=== PATIENT | female | born 1950 | race Caucasian/White ===

== ENCOUNTER 2023-08-06 23:48 | Observation (INO) | payer MEDICARE, BC ==
[~2023-08-06] VITALS: Ht 175.3 cm; Wt 91.0 kg
[2023-08-07] VITALS (7 sets, daily range): BP systolic 113–155; BP diastolic 30–65; PULSE 76–87; RESP 16–18; TEMP 98.1; O2SAT 90–97
[2023-08-07 00:25] LABS: BILIRUBIN,URINE NEGATIVE (Neg); CLARITY,URINE CLEAR (Clear); COLOR,URINE STRAW (Yellow); GLUCOSE, URINE NEGATIVE (Neg); KETONES,URINE NEGATIVE (Neg); LEUKOCYTE ESTERASE ,URINE TRACE (Neg); NITRITES, URINE NEGATIVE (Neg); OCCULT BLOOD,URINE NEGATIVE (Neg); PROTEIN,URINE NEGATIVE (Neg); UROBILINOGEN,URINE 0.2 E.U/dL (0.2-1.0)
[2023-08-07] MEDS ORDERED: pantoprazole 40mg IV 80 MG in normal saline 100ml IV soln 100 ML IV ONE (01:00)
[2023-08-07] MEDS ORDERED: ondansetron/PF 4mg/2ml inj IV ONE (01:00)
[2023-08-07] MEDS ORDERED: normal saline 1000ml 1,000 ML IV ONE (01:00)
[2023-08-07 01:02] LABS: ALANINE AMINOTRANSFERASE 27 U/L (12-78); ALBUMIN 3.7 G/DL (3.4-5.0); ALKALINE PHOSPHATASE 60 IU/L (46-116); ANION GAP 6 (8-16); ASPARTATE AMINO TRANSFERASE 24 U/L (10-37); BILIRUBIN,TOTAL 0.9 MG/DL (0.1-1.0); BLOOD UREA NITROGEN 15 MG/DL (7-18); BUN/CREATININE RATIO 15.2 (10.0-20.0); CALCIUM 9.5 MG/DL (8.5-10.1); CHLORIDE 103 MMOL/L (99-107); CREATININE 0.99 MG/DL (0.40-0.90); GLUCOSE 107 MG/DL (70-104); POTASSIUM 3.9 MMOL/L (3.5-5.1); SODIUM 134 MMOL/L (135-145); TOTAL CARBON DIOXIDE 25.3 MMOL/L (24-32); TOTAL PROTEIN 7.4 G/DL (6.4-8.2); eCRCL 54 ML/MIN; eGFR 55 ML/MIN
[2023-08-07 01:09] LABS: LIPASE 36 U/L (16-77)
[2023-08-07 01:12] LABS: UA COLLECTION TYPE CLN CATCH MIDSTREAM
[2023-08-07 01:15] LABS: PLATELET COUNT 251 X10'3 (140-440); RED CELL DISTRIBUTION WIDTH 13.1 % (11.5-14.5)
[2023-08-07 01:15] LABS: BACTERIA,URINE FEW /HPF (Neg); MUCUS STRANDS NONE SEEN /LPF (Neg); RBC,URINE NONE SEEN /HPF (0-2); SQUAMOUS EPITHELIAL CELL,UR FEW /LPF (FEW); WBC,URINE 0-4 /HPF (0-4)
[2023-08-07 01:17] LABS: BASOPHILS % (AUTO) 0.3 % (0-1); EOSINOPHILS # (AUTO) 0.1 X10'3 (0-0.9); EOSINOPHILS % (AUTO) 1.3 % (0-6); HEMATOCRIT 43.3 % (35.0-45.0); HEMOGLOBIN 14.6 g/dl (12.0-16.0); LYMPHOCYTES % (AUTO) 10.1 % (21-51); MEAN CORPUSCULAR HEMOGLOBIN 31.8 PG (27.0-31.0); MEAN CORPUSCULAR HGB CONC 33.6 g/dL (33.0-36.5); MEAN CORPUSCULAR VOLUME 94.4 FL (78-98); MEAN PLATELET VOLUME 7.9 FL (7.4-10.4); MONOCYTES # (AUTO) 0.7 X10'3 (0-0.9); MONOCYTES % (AUTO) 7.6 % (2-12); NEUTROPHILS # (AUTO) 7.7 X10'3 (1.8-7.7); NEUTROPHILS % (AUTO) 80.7 % (42-75); RED BLOOD COUNT 4.59 X10'6 (4.20-5.60); WHITE BLOOD COUNT 9.5 X10'3 (4.5-11.0)
[2023-08-07] MEDS: pantoprazole 40MG/NS 100ML BAG 100 ML IV SCH ×4 (01:30→22:03)
[2023-08-07] MEDS ORDERED: iohexol 300mg/ml 100ml inj. ONE (01:38)
[2023-08-07] MEDS ORDERED: LEVO100T9 PO (01:48)
[2023-08-07] MEDS ORDERED: OMEP40CA21 PO (01:48)
[2023-08-07] MEDS ORDERED: METO-395 PO (01:48)
[2023-08-07] MEDS ORDERED: AMIT25TA9 PO (01:48)
[2023-08-07] MEDS ORDERED: ondansetron/PF 4mg/2ml inj IV PRN (01:50)
[2023-08-07] MEDS ORDERED: magnesium Cl slow-release 64mg tablet PO PRN (01:50)
[2023-08-07] MEDS ORDERED: potassium Cl 20 mEq SR tablet PO PRN ×2 (01:50)
[2023-08-07] MEDS ORDERED: magnesium 2GM in 50ml NS 50 ML IV PRN (01:50)
[2023-08-07] MEDS ORDERED: magnesium 4gm in 100ml NS 100 ML IV PRN (01:50)
[2023-08-07] MEDS ORDERED: acetaminophen 325mg tablet PO PRN ×2 (01:50)
[2023-08-07] MEDS ORDERED: potassium Cl 40MEQ/1/2NS 520ml 520 ML IV PRN (01:50)
[2023-08-07] MEDS: normal saline 1000ml 1,000 ML IV SCH ×3 (02:07→19:37)
[2023-08-07 02:20] LABS: APTT 20 SECONDS (22-32); INR 0.9 INR; PROTHROMBIN TIME 10.1 SECONDS (9.0-12.0)
[2023-08-07 05:44] LABS: OCCULT BLOOD STOOL POSITIVE (Neg)
--- NOTE | 2023-08-07 06:35 | NUR ---
RECEIVED REPORT FROM ANNA DUNNE ([employer]) AND ASSUMED PT CARE. PT SLEEPNG, AWKE EASILY. PT A/O X4 IN NAD.
[2023-08-07] MEDS ORDERED: pantoprazole 40mg Tablet.DR PO SCH (07:30)
[2023-08-07] MEDS: metoprolol succinate 25mg (24-HOUR) SR. Tablet PO SCH (08:25)
[2023-08-07] MEDS: levoTHYROXINE 100mcg tablet PO SCH (08:26)
--- NOTE | 2023-08-07 09:18 | NUR ---
PT RECEIVED AM MEDS. PT IS NPO.
[2023-08-07 10:35] LABS: BASOPHILS % (AUTO) 0.4 % (0-1); EOSINOPHILS # (AUTO) 0.1 X10'3 (0-0.9); EOSINOPHILS % (AUTO) 0.9 % (0-6); HEMATOCRIT 39.5 % (35.0-45.0); HEMOGLOBIN 13.2 g/dl (12.0-16.0); LYMPHOCYTES # (AUTO) 1.1 X10'3 (1.1-4.8); LYMPHOCYTES % (AUTO) 11.9 % (21-51); MEAN CORPUSCULAR HEMOGLOBIN 31.5 PG (27.0-31.0); MEAN CORPUSCULAR HGB CONC 33.4 g/dL (33.0-36.5); MEAN CORPUSCULAR VOLUME 94.3 FL (78-98); MEAN PLATELET VOLUME 7.5 FL (7.4-10.4); MONOCYTES # (AUTO) 0.6 X10'3 (0-0.9); MONOCYTES % (AUTO) 6.5 % (2-12); NEUTROPHILS # (AUTO) 7.7 X10'3 (1.8-7.7); NEUTROPHILS % (AUTO) 80.3 % (42-75); PLATELET COUNT 224 X10'3 (140-440); RED BLOOD COUNT 4.19 X10'6 (4.20-5.60); RED CELL DISTRIBUTION WIDTH 13.2 % (11.5-14.5); WHITE BLOOD COUNT 9.5 X10'3 (4.5-11.0)
[2023-08-07] MEDS ORDERED: fentaNYL/PF 50MCG/1 ML 2ML syringe ONE (11:28)
[2023-08-07] MEDS ORDERED: diphenhydrAMINE 50 mg/ml inj ONE (11:28)
[2023-08-07] MEDS ORDERED: MIDAZolam 1 MG/ML 5ML VIAL ONE (11:28)
[2023-08-07] MEDS ORDERED: LIDOcaine Viscous 15ml cup ONE (11:29)
[2023-08-07] MEDS ORDERED: PEG 3350/Na sulf,bicarb,Cl/KCl oral sol 4 liter bottle PO ONE (12:00)
--- NOTE | 2023-08-07 12:50 | NUR ---
PT HAS BEEN AND CONTINUES TO BE OFF THE FLOOR TO GI LAB
--- NOTE | 2023-08-07 13:20 | NUR ---
PT JUST RETURNED FROM GI LAB. PT PLACED ON MONITOR AND FLUIDS RESTARTED. FAMILY AT
--- NOTE | 2023-08-07 13:40 | NUR ---
PT SATS DROP TO 88 WHEN SHE FALLS ASLEEP AFTER HER PROCEDURE. PT PLACE ON 2L VIA NC.
--- NOTE | 2023-08-07 16:32 | NUR ---
PT RESTING QUIETLY WITH FAMILY AT BS,
[2023-08-07] MEDS: ciprofloxacin lact 400MG/200ML 200 ML IV SCH ×3 (17:55→19:35)
--- NOTE | 2023-08-07 18:06 | NUR ---
PT SITTING IN BED, CALL LIGHT IN REACH. PT HAS BEEN DRINKING PREP WITH BSC IN ROOM.
--- NOTE | 2023-08-07 18:37 | NUR ---
Patient in room ED 7. I have received report from Sobia tejeda and had the opportunity to ask questions and assume patient care.
[2023-08-07] MEDS: metroNIDAZOLE-Flagyl 750mg/NS 150 ML IV SCH (19:36)
[2023-08-07] MEDS: sennosides/docusate sodium tablet PO SCH (19:43)
[2023-08-08] VITALS (10 sets, daily range): BP systolic 108–139; BP diastolic 45–80; PULSE 67–86; RESP 13–19; TEMP 97.7–98.2; O2SAT 92–95
[2023-08-08] MEDS: normal saline 1000ml 1,000 ML IV SCH ×2 (03:04→12:25)
[2023-08-08 05:24] LABS: BASOPHILS % (AUTO) 0.3 % (0-1); EOSINOPHILS # (AUTO) 0.1 X10'3 (0-0.9); HEMOGLOBIN 12.4 g/dl (12.0-16.0); LYMPHOCYTES # (AUTO) 1.1 X10'3 (1.1-4.8); LYMPHOCYTES % (AUTO) 11.4 % (21-51); MEAN CORPUSCULAR HEMOGLOBIN 31.7 PG (27.0-31.0); MEAN CORPUSCULAR HGB CONC 33.4 g/dL (33.0-36.5); MEAN CORPUSCULAR VOLUME 94.9 FL (78-98); MEAN PLATELET VOLUME 7.9 FL (7.4-10.4); MONOCYTES # (AUTO) 0.6 X10'3 (0-0.9); MONOCYTES % (AUTO) 6.8 % (2-12); NEUTROPHILS # (AUTO) 7.4 X10'3 (1.8-7.7); NEUTROPHILS % (AUTO) 80.5 % (42-75); PLATELET COUNT 199 X10'3 (140-440); RED CELL DISTRIBUTION WIDTH 13.1 % (11.5-14.5); WHITE BLOOD COUNT 9.2 X10'3 (4.5-11.0)
[2023-08-08 05:28] LABS: ALANINE AMINOTRANSFERASE 22 U/L (12-78); ALBUMIN 2.8 G/DL (3.4-5.0); ALBUMIN/GLOBULIN RATIO 0.9 (1.1-1.5); ALKALINE PHOSPHATASE 51 IU/L (46-116); ANION GAP 7 (8-16); ASPARTATE AMINO TRANSFERASE 18 U/L (10-37); BILIRUBIN,TOTAL 0.8 MG/DL (0.1-1.0); BLOOD UREA NITROGEN 7 MG/DL (7-18); BUN/CREATININE RATIO 8.2 (10.0-20.0); CALCIUM 8.7 MG/DL (8.5-10.1); CHLORIDE 109 MMOL/L (99-107); CREATININE 0.85 MG/DL (0.40-0.90); GLUCOSE 94 MG/DL (70-104); POTASSIUM 3.4 MMOL/L (3.5-5.1); SODIUM 140 MMOL/L (135-145); TOTAL CARBON DIOXIDE 23.7 MMOL/L (24-32); TOTAL PROTEIN 5.9 G/DL (6.4-8.2); eCRCL 63 ML/MIN; eGFR 66 ML/MIN
--- NOTE | 2023-08-08 06:00 | NUR ---
Patient in room ORTHO 4015. I have received report from Charmaine and had the opportunity to ask questions and assume patient care.
--- NOTE | 2023-08-08 06:31 | NUR ---
patient drinking golytely all night BM liquid but brown tinged still. All cares given. patient is for colonoscopy this am. report given to Charmaine DUNNE
[2023-08-08] MEDS: metroNIDAZOLE-Flagyl 750mg/NS 150 ML IV SCH (08:00)
[2023-08-08] MEDS: sennosides/docusate sodium tablet PO SCH (08:00)
--- NOTE | 2023-08-08 08:29 | NUR ---
Patient at GI lab for colonoscopy
[2023-08-08] MEDS ORDERED: fentaNYL/PF 50MCG/1 ML 2ML syringe ONE (09:19)
[2023-08-08] MEDS ORDERED: diphenhydrAMINE 50 mg/ml inj ONE (09:20)
[2023-08-08] MEDS ORDERED: MIDAZolam 1 MG/ML 5ML VIAL ONE (09:20)
[2023-08-08] MEDS: levoTHYROXINE 100mcg tablet PO SCH (11:29)
[2023-08-08] MEDS: metoprolol succinate 25mg (24-HOUR) SR. Tablet PO SCH (11:29)
[2023-08-08] MEDS: pantoprazole 40MG/NS 100ML BAG 100 ML IV SCH (11:30)
[2023-08-08] MEDS: ciprofloxacin lact 400MG/200ML 200 ML IV SCH (12:05)
[2023-08-08] MEDS ORDERED: METR-159 PO (13:20)
[2023-08-08] MEDS ORDERED: CIPR-202 PO (13:20)
--- NOTE | 2023-08-08 14:32 | NUR ---
Reviewed discharge instructions with patient and her daughter. Patient is alert, oriented and expresses happiness to discharge home. Patient verbalized understanding. Patient's daughter assisted patient with dressing and gathering her belongings. Patient was wheeled downstairs by this consumer loan underwriter to be driven home by her daughter
== END 2023-08-08 14:20 | disposition home or self-care (01) ==
LOC: ER 23:50 → ED HOLD 08-07 01:53 → INTOOBSV 08-07 01:53 → ORTHO 4S 08-07 18:55
PROVIDERS: ADMIT Internal Medicine; ATTEND Internal Medicine
DX: K52.9 Noninfective gastroenteritis and colitis, unspecified (principal); K63.3 Ulcer of intestine; D12.8 Benign neoplasm of rectum; K92.1 Melena; K21.9 Gastro-esophageal reflux disease without esophagitis; K57.30 Diverticulosis of large intestine without perforation or abscess without bleeding; K42.9 Umbilical hernia without obstruction or gangrene; K43.9 Ventral hernia without obstruction or gangrene; Z85.038 Personal history of other malignant neoplasm of large intestine; Z98.0 Intestinal bypass and anastomosis status; Z87.891 Personal history of nicotine dependence; Z90.710 Acquired absence of both cervix and uterus; Z79.899 Other long term (current) drug therapy
CPT/HCPCS: 36415; 43235; 45380; 45385; 74177; 80053; 81001; 82272; 83690; 85025; 85610; 85730; 86885; 86900; 86901; 87081; 87088; 93005; 96365; 96366; 96367; 96375; 96376; 99285; C9113; G0378; J0744; J2250; J2405; J3010; J3490; J7030; Q9967; 88305; 99152; 99153; A4615; A4620; C1889; J1200